=== PATIENT | female | born 1975 | race Caucasian/White ===

== ENCOUNTER → 2016-09-28 | Outpatient (CLI) | payer OTHER | LOC: FIMAGING 08:48 | PROVIDERS: ATTEND Obstetrics & Gynecology | DX: O09.512 Supervision of elderly primigravida, second trimester (principal); O09.812 Supervision of pregnancy resulting from assisted reproductive technology, second trimester; O44.02 Complete placenta previa NOS or without hemorrhage, second trimester; Z3A.20 20 weeks gestation of pregnancy ==

== ENCOUNTER → 2016-10-31 | Outpatient (CLI) | payer OTHER | LOC: FIMAGING 09:54 | PROVIDERS: ATTEND Obstetrics & Gynecology | DX: O44.02 Complete placenta previa NOS or without hemorrhage, second trimester (principal); O09.812 Supervision of pregnancy resulting from assisted reproductive technology, second trimester; O99.282 Endocrine, nutritional and metabolic diseases complicating pregnancy, second trimester; E03.9 Hypothyroidism, unspecified; O09.512 Supervision of elderly primigravida, second trimester; Z3A.24 24 weeks gestation of pregnancy ==

== ENCOUNTER → 2016-11-28 | Outpatient (CLI) | payer OTHER | LOC: FIMAGING 09:36 | PROVIDERS: ATTEND Obstetrics & Gynecology | DX: O09.513 Supervision of elderly primigravida, third trimester (principal); O09.813 Supervision of pregnancy resulting from assisted reproductive technology, third trimester; O44.03 Complete placenta previa NOS or without hemorrhage, third trimester; Z3A.28 28 weeks gestation of pregnancy ==

== ENCOUNTER → 2016-12-26 | Outpatient (CLI) | payer OTHER | LOC: FIMAGING 09:07 | PROVIDERS: ATTEND Obstetrics & Gynecology | DX: O09.513 Supervision of elderly primigravida, third trimester (principal); O09.813 Supervision of pregnancy resulting from assisted reproductive technology, third trimester; Z3A.32 32 weeks gestation of pregnancy ==

== ENCOUNTER 2017-01-05 05:11 | Inpatient (IN) | payer OTHER ==
[2017-01-05] MEDS ORDERED: NIFEdipine 10 MG CAP PO ONE (05:57)
[2017-01-05] MEDS ORDERED: LR 1,000 ML IV PRN (06:38)
[2017-01-05] MEDS ORDERED: EPSOM SALT 454 GM TP PRN (06:38)
[2017-01-05] MEDS ORDERED: LR 1,000 ML IV ONE (06:41)
[2017-01-05] MEDS ORDERED: LR 1,000 ML IV SCH (07:00)
--- NOTE | 2017-01-05 07:46 | GHP ---
[f rep st] HISTORY AND PHYSICAL DATE OF ADMISSION: 01/05/2017 CHIEF COMPLAINT: Contractions and vaginal bleeding. HISTORY OF PRESENT ILLNESS: The patient is a 41-year-old, 1, para 0, female at 34 weeks and 1 day estimated gestational age by IVF dating, who presents to Labor and Delivery with complaints of contractions starting at 3 a.m. in addition to associated menstrual-like cramping and vaginal bleeding that started in the elevator upon arrival to the hospital. Her is significant for a history of an anterior placenta previa that has now resolved with a recent ultrasound confirming multiple loops of cord below the head consistent with funic cord presentation, as well as a recent admission to [facility] 48 hours ago for a large volume bleed. During the patient's recent admission, she was given a course of magnesium for tocolysis, completed a course of steroids for lung maturity, and her bleeding had stopped and contractions resolved. The patient was sent home yesterday afternoon and she remained stable until this morning at 3 a.m. when she awoke with contractions every 2-3 minutes, as well as menstrual-like cramping. She did not have any further bleeding until she arrived to the hospital and had a small smear of bright red bleeding on her pad. She reports that the final diagnosis that she was given at [facility] was a suspected partial abruption behind the placenta, even though she says that nothing was obviously seen on imaging. Her is also complicated by a history of advanced maternal age with normal preimplantation genetic screening, subclinical hypothyroidism, history of LEEP, and cystic fibrosis carrier. Her blood type is A positive. PAST MEDICAL HISTORY: None. PAST SURGICAL HISTORY: LEEP and ACL knee surgery. ALLERGIES: No known drug allergies. MEDICATIONS: None. LABS: Blood type A positive, antibody screen negative, Pap ASCUS with negative HPV, varicella immune, rubella immune, RPR nonreactive, hepatitis B surface antigen negative, HIV negative, gonorrhea and chlamydia negative, 1- hour GTT normal. PHYSICAL EXAMINATION: VITAL SIGNS: Blood pressure 112/75, heart rate 118, temp 37.4 degrees Celsius. heart rate tracing 140s reactive and reassuring with accelerations and no decelerations and moderate variability present. Tocometer contractions noted every 1-2 minutes upon arrival to labor and delivery. GENERAL: No acute. No distress. Well-developed, well- nourished female. CARDIOVASCULAR: Regular rate and rhythm. LUNGS: Clear to auscultation bilaterally. ABDOMEN: Gravid and nontender. STERILE SPECULUM EXAM: A speculum was placed and clot was noted to be covering the cervix. The clot was gently removed with Mejia swabs and the cervix was visualized clearly. There was no active bright red bleeding noted. The speculum was then removed and a gentle cervical exam was performed digitally which confirmed that the cervix was 1-2 cm dilated, 90% effaced, and approximately -1 station. There was palpable umbilical cord above the cervical os with pulsations palpated. Limited bedside ultrasound prior to cervical exam: A limited bedside ultrasound did show a vertex presentation with 1 small loop of cord visualized on color flow to extend partially down below the head, but not completely visualized to be above the cervix on ultrasound. ASSESSMENT: Patient is a 41-year-old, 1, para 0, female at 34 weeks and 1 day estimated gestational age by IVF dating with contractions, vaginal bleeding, and funic cord presentation. PLAN: 1. Admit to labor and delivery. 2. status reassuring with reactive nonstress test and category 1 monitoring. Status post completed steroid course as of yesterday morning. We will continue with continuous monitoring. 3. contractions and bleeding: History of anterior placenta previa that has resolved. Suspected that this bleeding is consistent with a partial abruption. We will get an official ultrasound for further evaluation. We will get baseline labs to include a type and screen, CBC, PT, PTT, fibrinogen and Kleihauer Betke. Her blood type is A positive, so RhoGAM was not needed. Her cervical exam at this time appears likely stable from her prior exam; however, we will re-evaluate if needed, if the contractions continue. The patient was given 1 dose of nifedipine at 20 mg p.o. as initial tocolytics due to the frequent contractions and her status. She noted symptomatic improvement in her contractions after receiving nifedipine. We will continue to monitor closely. Discussed that we will need to proceed with a section if patient has any active hemorrhage that does not resolve, active labor with cervical change, or non-reassuring status. Will plan to keep the patient n.p.o. at this time with IV fluid hydration with a bolus of 500 cc, then maintenance fluid at 125 cc an hour. 4. PABLITO hose for VTE prophylaxis. Plan for bed rest and bathroom privileges at this time. /[id number]/MODL MTDD
[2017-01-05 08:34] LABS: INR 0.95 (0.83-1.16); PROTIME(PATIENT) 12.6 SEC (12.0-15.0)
[2017-01-05 08:35] LABS: APTT 23.3 SEC (23.0-38.0)
[2017-01-05 08:38] LABS: ABSOLUTE NRBC COUNT 0.02 10^3/uL (0-0.01); ADD DIFF? YES; ADD MORPH? NO; ADD SCAN? NO; ATYPICAL LYMPHOCYTE FLAG 0 (0-99); FRAGMENT RBC FLAG 0 (0-99); HEMATOCRIT 28.9 % (38.0-47.0); LEFT SHIFT FLG 10 (0-99); LIPEMIA HEMOLYSIS FLAG 90 (0-99); MEAN CELL HEMOGLOBIN 34.5 pg (27.9-34.1); MEAN CELL HEMOGLOBIN CONCENTR. 34.6 g/dL (32.4-36.7); MEAN CELL VOLUME 99.7 fL (81.5-99.8); MEAN PLATELET VOLUME 10.6 fL (8.7-11.7); NRBC-AUTO% 0.1 % (0.0-0.2); PLATELET CLUMPS FLAG 10 (0-99); PLATELET COUNT 174 10^3/uL (150-400); RED CELL DISTRIBUTION WIDTH 13.2 % (11.5-15.2)
[2017-01-05 09:04] LABS: PLATELET ESTIMATE ADEQUATE (ADEQ)
[2017-01-05 09:05] LABS: MACROCYTES 1+; POLYCHROMASIA 1+
[2017-01-05] MEDS: NIFEdipine 10 MG CAP PO SCH ×2 (12:19→18:29)
--- NOTE | 2017-01-05 12:53 | SOAPPROG ---
SOAP Progress Note Assessment/Plan: Assessment: 41 yo G1P 0@ 34 1/7, admitted for contractions and vaginal bleeding, s/ p bmz x 2. Plan: 01/05/17 12:50 Continue nifedipine 10 mg q 6 hr, monitor overnight, s/p bmz, anticipate d/c home this weekend if no further vaginal bleeding. Subjective: 41 yo G1P 0@ 34 1/7, admitted for contractions and vaginal bleeding, s/ p bmz x 2. Objective: Laboratory Results 01/05/17 08:00 PT 12.6 SEC (12.0-15.0) 01/05/17 08:00 INR 0.95 (0.83-1.16) 01/05/17 08:00 VSS Contractions irregular 140s, mod variability, +accels, no decels Physical Exam - Physical Exam General Appearance: no apparent distress (vaginal exam /-1) ICD10 Worksheet Patient Problems: Problems Problem Status Onset Status post primary low transverse section Acute Vaginal bleeding during , antepartum Acute
[2017-01-06] MEDS: NIFEdipine 10 MG CAP PO SCH ×5 (00:18→23:59)
[2017-01-06] MEDS ORDERED: CEPACOL LOZENGE PO ONE (01:00)
[2017-01-06 01:08] LABS: % IMMATURE GRANULYOCYTES 1.9 % (0.0-1.1); ABSOLUTE NRBC COUNT 0.08 10^3/uL (0-0.01); ADD DIFF? NO; ADD MORPH? NO; ADD SCAN? NO; ATYPICAL LYMPHOCYTE FLAG 0 (0-99); FRAGMENT RBC FLAG 0 (0-99); HEMATOCRIT 29.8 % (38.0-47.0); HEMOGLOBIN 10.4 g/dL (12.6-16.3); LEFT SHIFT FLG 10 (0-99); LIPEMIA HEMOLYSIS FLAG 90 (0-99); MEAN CELL HEMOGLOBIN 34.2 pg (27.9-34.1); MEAN CELL HEMOGLOBIN CONCENTR. 34.9 g/dL (32.4-36.7); MEAN PLATELET VOLUME 10.5 fL (8.7-11.7); NRBC-AUTO% 0.5 % (0.0-0.2); PLATELET CLUMPS FLAG 0 (0-99); PLATELET COUNT 173 10^3/uL (150-400); RED BLOOD CELL COUNT 3.04 10^6/uL (4.18-5.33)
[2017-01-06 01:20] LABS: ALANINE AMINOTRANSFERASE 38 IU/L (9-52); ALBUMIN 3.1 g/dL (3.5-5.0); ALKALINE PHOSPHATASE 133 IU/L (38-126); ANION GAP 9 mEq/L (8-16); ASPARTATE AMINOTRANSFERASE 33 IU/L (14-46); BILIRUBIN,TOTAL 0.5 mg/dL (0.1-1.4); CALCIUM 8.9 mg/dL (8.5-10.4); CARBON DIOXIDE 19 mEq/l (22-31); CHLORIDE 109 mEq/L (97-110); CREATININE 0.7 mg/dL (0.6-1.0); GLOMERULAR FILTRATION RATE > 60; GLUCOSE 82 mg/dL (70-100); POTASSIUM 4.2 mEq/L (3.5-5.2); SODIUM 137 mEq/L (134-144); TOTAL PROTEIN 5.8 g/dL (6.3-8.2)
[2017-01-06] MEDS: FERROUS SULFATE 325 MG TAB PO SCH (09:02)
--- NOTE | 2017-01-06 10:57 | SOAPPROG ---
SOAP Progress Note Assessment/Plan: Assessment: 41 yo G1P 0@ 34 2/7, admitted for contractions and vaginal bleeding, s/ p bmz x 2. Plan: Continue nifedipine 10 mg q 6 hr, monitor overnight, s/p bmz, anticipate d/c home early in the week if no further bleeding, cervical change or contractions. Continue to monitor dyspnea, think it is likely related to nifedipine. 01/06/17 10:55 Subjective: 41 yo G1P 0@ 34 2/7, admitted for contractions and vaginal bleeding, s/ p bmz x 2. Had some shortness of breath overnight. Objective: Laboratory Results 01/06/17 01:00 01/06/17 01:00 PT 12.6 SEC (12.0-15.0) 01/05/17 08:00 INR 0.95 (0.83-1.16) 01/05/17 08:00 118/63 80 18 37.0 95% NST 130s, mod variability, +accels. Physical Exam - Physical Exam General Appearance: no apparent distress Respiratory: lungs clear Cardiac/Chest: regular rate, rhythm Abdomen: non-tender Skin: warm/dry Extremities: non-tender Neuro/Psych: oriented x 3 ICD10 Worksheet Patient Problems: Problems Problem Status Onset Vaginal bleeding during , antepartum Acute
[2017-01-07] MEDS ORDERED: CEFAZOLIN 2 GM/DEXTROSE/100 ML BAG IV ONE (04:49)
[2017-01-07] MEDS ORDERED: MISOPROSTOL 200 MCG TAB ONE ×2 (04:51→06:14)
[2017-01-07] MEDS ORDERED: CITRIC ACID/SODIUM CITRATE 30 ML UDCUP ONE (04:52)
--- NOTE | 2017-01-07 04:57 | SOAPPROG ---
SOAP Progress Note Assessment/Plan: Assessment: 41 yo G1P 0@ 34 3/7, admitted for contractions and vaginal bleeding, s/ p bmz x 2, with rupture of membranes.. Plan: Proceed to OR for emergent delivery via section due to funic presentation. The risks of bleeding, blood transfusion, infection, damage to the bowel, bladder, uterus, ovaries, blood vessels, and nerves were discussed. 01/07/17 04:55 Subjective: 41 yo G1P 0@ 34 3/7, admitted for contractions and vaginal bleeding, s/ p bmz x 2, with rupture of membranes Objective: Laboratory Results 01/06/17 01:00 01/06/17 01:00 PT 12.6 SEC (12.0-15.0) 01/05/17 08:00 INR 0.95 (0.83-1.16) 01/05/17 08:00 vss NST 140s, mod variability, Physical Exam - Physical Exam Pelvic Exam: other (gross rupture of membranes) ICD10 Worksheet Patient Problems: Problems Problem Status Onset Vaginal bleeding during , antepartum Acute
[2017-01-07] MEDS ORDERED: fentaNYL 100 MCG/2 ML INJ ONE (04:59)
[2017-01-07] MEDS ORDERED: morphINE PF 5 MG/10 ML INJ ONE (04:59)
[2017-01-07] MEDS ORDERED: METHYLERGONOVINE MAL 0.2 MG/ML INJ ONE (05:28)
[2017-01-07] MEDS ORDERED: HEMABATE 250 MCG/1 ML AMP IM ONE ×3 (05:34→06:36)
[2017-01-07] MEDS ORDERED: PHENYLEPHRINE HCL 100 MCG/ML SYR ONE ×2 (05:35→06:13)
[2017-01-07] MEDS ORDERED: OXYTOCIN 100 UNITS/10 ML VIAL ONE (05:35)
[2017-01-07] MEDS ORDERED: ONDANSETRON 4 MG/2 ML VIAL IVP PRN ×2 (05:37)
[2017-01-07] MEDS ORDERED: MEPERIDINE 25 MG/ML SYR IVP PRN (05:37)
[2017-01-07] MEDS ORDERED: PHENYLEPHRINE HCL 100 MCG/ML SYR IVP PRN (05:37)
[2017-01-07] MEDS ORDERED: fentaNYL 100 MCG/2 ML INJ IVP PRN (05:37)
[2017-01-07] MEDS ORDERED: METOCLOPRAMIDE 10 MG/2 ML VIAL IVP PRN (05:37)
[2017-01-07] MEDS ORDERED: NALOXONE HCL 0.4 MG/ML INJ IVP PRN ×2 (05:37)
--- NOTE | 2017-01-07 05:37 | PREANESOB ---
Obstetric Pre-Anesthesia Info - General Info Proposed Procedure: C/S : 1 Para: 0 - Info Status: Premature, Sebastian Monitors: External FHR Pattern: Reassuring - Labor Status Indications for Current Section: Cord Prolapse Labor Epidural: No Anesthesia Allergies/Adverse Reactions: Allergy/AdvReac Type Severity Reaction Status Date / Time No Known Allergies Allergy Unverified 01/05/17 05:57 Visit Medications: Generic Name Dose Route Start Last Admin Trade Name Fredestiney PRN Reason Stop Dose Admin Ferrous Sulfate 325 mg 01/06/17 09:00 01/06/17 09:02 Ferrous Sulfate PO 07/05/17 08:59 325 mg DAILY HOLGER Administration Lactated Ringer's 1,000 mls @ 0 mls/hr 01/05/17 06:38 Lr IV 07/04/17 06:37 PRN PRN SEE PROTOCOL CONDITIONS Protocol Per Protocol Lactated Ringer's 1,000 mls @ 125 mls/hr 01/05/17 07:00 Lr IV 07/04/17 06:59 CONT HOLGER Magnesium Sulfate 454 gm 01/05/17 06:38 Epsom Salt TP 07/04/17 06:37 PRN PRN perineal discomfort Nifedipine 10 mg 01/05/17 12:00 01/06/17 23:59 Procardia PO 07/04/17 11:59 10 mg Q6 HOLGER Administration Discontinued Medications Generic Name Dose Route Start Last Admin Trade Name Ambrose PRN Reason Stop Dose Admin Cefazolin Sodium/Dextrose Confirm 01/07/17 04:49 Ancef 2 Gm (Premix) Administered 01/07/17 04:50 Dose 2 gm IV .STK-MED ONE Citric Acid/Sodium Citrate Confirm 01/07/17 04:52 Bicitra Administered 01/07/17 04:53 Dose 30 ml .ROUTE .STK-MED ONE Fentanyl Confirm 01/07/17 04:59 Sublimaze Administered 01/07/17 05:00 Dose 100 mcg .ROUTE .STK-MED ONE Lactated Ringer's 1,000 mls @ 500 mls/hr 01/05/17 06:41 01/06/17 12:21 Lr IV 01/05/17 08:40 Not Given EDNOW ONE Methylergonovine Maleate Confirm 01/07/17 05:28 Methergine Administered 01/07/17 05:29 Dose 0.2 mg .ROUTE .STK-MED ONE Misoprostol Confirm 01/07/17 04:51 Cytotec Administered 01/07/17 04:52 Dose 800 mcg .ROUTE .STK-MED ONE Morphine Sulfate Confirm 01/07/17 04:59 Morphine Pf 5 Mg/10 Ml Administered 01/07/17 05:00 Dose 5 mg .ROUTE .STK-MED ONE Nifedipine 20 mg 01/05/17 05:57 01/05/17 06:08 Procardia PO 01/05/17 05:58 20 mg ONCE ONE Administration Throat Lozenges 1 ea 01/06/17 01:00 01/06/17 01:00 Cepacol Lozenge PO 01/06/17 01:01 1 ea ONCE ONE Administration - Anesthesia History Response to Local Anesthetics: Normal Anesthesia & Operative History: No Prior Problems - Focused Exam Height/Weight (Nursing): Height 172.72 cm Weight 82.1 kg Labs: 01/06/17 01:00 01/06/17 01:00 Patient ABO/Rh A POSITIVE 01/05/17 08:00 Total Bilirubin 0.5 mg/dL (0.1-1.4) 01/06/17 01:00 AST 33 IU/L (14-46) 01/06/17 01:00 ALT 38 IU/L (9-52) 01/06/17 01:00
[2017-01-07] MEDS ORDERED: SIMETHICONE 80 MG TAB CHEW PO PRN (05:53)
--- NOTE | 2017-01-07 05:58 | OBDEL ---
Info Type: Primary GBS+: No Indications for Delivery: PPROM, Placenta Previa Vaginal Delivery - Labor and Delivery Onset of Contractions Date: 01/04/17 Onset of Contractions Time: 17:00 Onset of Contractions Type: Spontaneous Rupture of Membranes Date: 01/07/17 Rupture of Membranes Type: Spontaneous Amniotic Fluid Color: Clear Operative Report - Delivery Pre-op Diagnoses: PTL, PPROM, Placental previa Post-op Diagnoses: PTL, PPROM, Placental previa Nulliparous Prior to Delivery: Yes Presentation at Delivery: Vertex Procedure: Emergent, Low Transverse Surgeon: Claire Hyatt Kiln Furniture Caster: Amy Becerra Anesthesiologist: Aj Bush Towel Cabinet Repairer/MOBILE ELECTRONICS INSTALLER: Chayo Dickey L&Abdiel Analgesia/Anesthesia Type: Spinal Complications: Other (Specify) (PTL, PPROM, Placenta previa) IV Fluid (ml): 400 EBL: 1200 Data Sebastian Delivery Date: 01/07/17 Delivery Time: 05:26 JASPAL: 02/15/17 Gestational Age: 34 week(s) and 3 day(s) Sex of Infant: Male ICD10 Worksheet Patient Problems: Problems Problem Status Onset Status post primary low transverse section Acute Vaginal bleeding during , antepartum Acute - ICD10 Problem Qualifiers (1) Status post primary low transverse section
[2017-01-07] MEDS ORDERED: METHYLERGONOVINE MAL 0.2 MG/ML INJ IM ONE (06:05)
[2017-01-07] MEDS ORDERED: DIPHENOXYLATE/ATROPINE LOMOTIL 1 TAB PO PRN (06:05)
[2017-01-07] MEDS ORDERED: fentaNYL 2MCG/ML/BUP 0.1% RTU 100 ML BAG EP ONE (06:13)
--- NOTE | 2017-01-07 06:14 | POSTANESTH ---
Post Anesthetic Evaluation Cardiovascular Status: Normal, Stable Respiratory Status: Normal, Stable, Similar to Pre-op Cond. Level of Consciousness/Mental Status: Can Participate in Eval, Alert and Oriented Pain Control: Adequate, Prn Tx Ordered Nausea/Vomiting Control: Adequate, Prn Tx Ordered Complications Possibly Related to Anesthesia: None Noted
[2017-01-07] MEDS ORDERED: TRANEXAMIC ACID 1,000 MG in NS 100 ML IV ONE (06:34)
[2017-01-07 06:38] LABS: ABSOLUTE NRBC COUNT 0.18 10^3/uL (0-0.01); ADD DIFF? YES; ADD SCAN? NO; ATYPICAL LYMPHOCYTE FLAG 10 (0-99); FRAGMENT RBC FLAG 0 (0-99); HEMATOCRIT 25.7 % (38.0-47.0); HEMOGLOBIN 8.8 g/dL (12.6-16.3); LEFT SHIFT FLG 20 (0-99); LIPEMIA HEMOLYSIS FLAG 90 (0-99); MEAN CELL HEMOGLOBIN 34.1 pg (27.9-34.1); MEAN CELL HEMOGLOBIN CONCENTR. 34.2 g/dL (32.4-36.7); MEAN CELL VOLUME 99.6 fL (81.5-99.8); MEAN PLATELET VOLUME 10.4 fL (8.7-11.7); PLATELET CLUMPS FLAG 20 (0-99); PLATELET COUNT 191 10^3/uL (150-400); RED BLOOD CELL COUNT 2.58 10^6/uL (4.18-5.33); RED CELL DISTRIBUTION WIDTH 13.1 % (11.5-15.2)
[2017-01-07 06:39] LABS: NRBC-AUTO% 1.1 % (0.0-0.2)
[2017-01-07 06:40] LABS: ADD MORPH? NO
[2017-01-07] MEDS ORDERED: MISOPROSTOL 200 MCG TAB PR SCH (06:45)
[2017-01-07 07:04] LABS: MACROCYTES 1+; PLATELET ESTIMATE ADEQUATE (ADEQ); POLYCHROMASIA 2+
[2017-01-07] MEDS: NIFEdipine 10 MG CAP PO SCH (07:07)
[2017-01-07] MEDS ORDERED: OXYTOCIN/RINGERS LACTATE 20 UNIT/1,000 ML BAG IV ONE (07:18)
[2017-01-07 08:18] LABS: ABSOLUTE NRBC COUNT 0.24 10^3/uL (0-0.01); ADD DIFF? YES; ADD MORPH? NO; ADD SCAN? NO; ATYPICAL LYMPHOCYTE FLAG 0 (0-99); FRAGMENT RBC FLAG 0 (0-99); HEMATOCRIT 32.5 % (38.0-47.0); HEMOGLOBIN 10.7 g/dL (12.6-16.3); LEFT SHIFT FLG 20 (0-99); LIPEMIA HEMOLYSIS FLAG 80 (0-99); MEAN CELL HEMOGLOBIN 34.5 pg (27.9-34.1); MEAN CELL HEMOGLOBIN CONCENTR. 32.9 g/dL (32.4-36.7); MEAN CELL VOLUME 104.8 fL (81.5-99.8); MEAN PLATELET VOLUME 10.9 fL (8.7-11.7); NRBC-AUTO% 0.9 % (0.0-0.2); PLATELET CLUMPS FLAG 40 (0-99); PLATELET COUNT 238 10^3/uL (150-400); RED CELL DISTRIBUTION WIDTH 13.3 % (11.5-15.2)
--- NOTE | 2017-01-07 08:19 | GOP ---
[f rep st] OPERATIVE REPORT DATE OF OPERATION: 01/07/2017 SURGEON: Claire Yen MD ELECTRONIC GAMING DEVICE SUPERVISOR: Amy Becerra. ANESTHESIA: Spinal. PREOPERATIVE DIAGNOSIS: Intrauterine at 34-3/7 weeks' gestation, with labor, rupture of membranes, and funic cord presentation. POSTOPERATIVE DIAGNOSIS: Intrauterine at 34-3/7 weeks' gestation, with labor, rupture of membranes, and funic cord presentation. PROCEDURE PERFORMED: Primary low transverse section. FINDINGS: Viable male in vertex presentation, with a funic cord presentation and low-lying placenta that was adherent to the uterine wall, requiring banjo curette. SPECIMENS: None. ESTIMATED BLOOD LOSS: 1500 mL. INDICATIONS: Medina is a 41-year-old, G1, P0 female, who was admitted for contractions and vaginal bleeding, and evaluation for funic cord presentation, when she had spontaneous rupture of membranes. The patient was consented for an urgent section, to which the patient agreed. DESCRIPTION OF PROCEDURE: The patient was taken the operating room, where she was prepped and draped in normal sterile fashion in the dorsal supine position, with a leftward tilt. A surgical time-out was performed, verifying the patient' s name, date of , planned procedure, and site. The patient received 2 g of Ancef preoperatively. A Pfannenstiel skin incision was made with a scalpel and carried through to the underlying fascia. The fascia was incised in the midline and extended laterally. The superior aspect of the fascia was grasped with a Xochitl clamp. The rectus muscles dissected off bluntly and with the Bovie cautery. The inferior aspect of the fascia was grasped with a Xochitl clamp. The rectus muscles dissected off bluntly and with the Bovie cautery. The peritoneum was identified and entered in bluntly and divided. A bladder blade was placed. The vesicouterine peritoneum was incised with the Metzenbaum scissors, and a bladder flap was created digitally. The bladder blade was replaced. The uterus was incised and the uterine incision was extended laterally. Upon entry into the uterine incision, placenta was low-lying. The funic cord presentation was felt. The infant was delivered. The cord was clamped and cut. Cord blood was obtained. The was handed to the waiting nurse practitioner. The placenta was removed manually and with banjo curette secondary to adherent placenta. Secondary to the adherent placenta, the patient lost an increased amount of blood loss. Estimated blood loss was 1500. The uterus was exteriorized and cleared of all clots and debris. As noted, sharp banjo curette was performed. The uterine wall felt smooth after the banjo curette. The uterine incision was reapproximated with 0 Monocryl in a running, locked fashion in 2 layers. The uterus was returned to the abdomen. The gutters were cleared of all clots and debris. The uterine incision was reinspected and noted to be hemostatic. The subfascial spaces were inspected and noted be hemostatic. The fascia was reapproximated with 0 Vicryl in a running, locked fashion, and the subcutaneous tissue was irrigated and closed with 3-0 Vicryl. The skin was closed with 4-0 Monocryl. All counts were correct x2. COMPLICATIONS: None. OUTCOME: Stable to the recovery room. /[id number]/MODL MTDD
[2017-01-07 08:46] LABS: MACROCYTES 1+; PLATELET ESTIMATE ADEQUATE (ADEQ); POLYCHROMASIA 2+
[2017-01-07] MEDS: KETOROLAC 30 MG/1 ML SDV IVP PRN ×3 (09:17→23:31)
[2017-01-07] MEDS: FERROUS SULFATE 325 MG TAB PO SCH (10:12)
[2017-01-07] MEDS: HYDROCODONE/APAP 5/325 TAB PO PRN ×2 (14:12→22:17)
[2017-01-07] MEDS: DOCUSATE SODIUM 100 MG CAP PO PRN (22:17)
[2017-01-08] MEDS: KETOROLAC 30 MG/1 ML SDV IVP PRN (05:58)
[2017-01-08 06:45] LABS: % IMMATURE GRANULYOCYTES 1.1 % (0.0-1.1); ABSOLUTE IMMATURE GRANULOCYTES 0.12 10^3/uL (0.00-0.10); ADD DIFF? NO; ADD MORPH? YES; ADD SCAN? NO; ATYPICAL LYMPHOCYTE FLAG 0 (0-99); FRAGMENT RBC FLAG 0 (0-99); HEMATOCRIT 18.6 % (38.0-47.0); LEFT SHIFT FLG 0 (0-99); LIPEMIA HEMOLYSIS FLAG 90 (0-99); MEAN CELL HEMOGLOBIN 33.9 pg (27.9-34.1); MEAN CELL HEMOGLOBIN CONCENTR. 33.9 g/dL (32.4-36.7); MEAN PLATELET VOLUME 10.3 fL (8.7-11.7); PLATELET CLUMPS FLAG 0 (0-99); PLATELET COUNT 155 10^3/uL (150-400); RED BLOOD CELL COUNT 1.86 10^6/uL (4.18-5.33); RED CELL DISTRIBUTION WIDTH 13.6 % (11.5-15.2)
[2017-01-08 06:57] LABS: HEMOGLOBIN 6.3 g/dL (12.6-16.3)
[2017-01-08 07:18] LABS: PLATELET ESTIMATE ADEQUATE (ADEQ); POLYCHROMASIA 2+
[2017-01-08 07:19] LABS: MACROCYTES 1+
--- NOTE | 2017-01-08 08:11 | OBPP ---
Progress Note Assessment/Plan: Assessment: 41 y.o. s/p primary C/S for PROM and placental previa. POD #1. Severely anemic. Plan: care. D/C Kidd and abdominal bandage. Consult with Dr. RIVERA and will cross and match 2 units of RBCs. Encourage ambulation. 01/08/17 08:08 Subjective: Reports feeling well with minimal vaginal bleeding and discomfort. Incision CDI and healing well. Denies vertigo with ambulation. Eating and drinking well without nausea or vomiting. Able to void after kidd d/c. Appropriate mood with good support system. Objective: 01/08/17 06:30 01/06/17 01:00 Patient ABO/Rh A POSITIVE 01/05/17 08:00 Total Bilirubin 0.5 mg/dL (0.1-1.4) 01/06/17 01:00 AST 33 IU/L (14-46) 01/06/17 01:00 ALT 38 IU/L (9-52) 01/06/17 01:00 Temp Pulse Resp BP Pulse Ox 37.1 C 99 18 134/84 H 100 01/08/17 05:45 01/08/17 05:45 01/08/17 05:45 01/08/17 05:45 01/08/17 05:45 Uterine Position/Fundal Height: Umbilicus -1 Uterine Tone: Firm Physical Exam - Physical Exam General Appearance: WD/WN, alert, no apparent distress EENT: normal ENT inspection Neck: non-tender, full range of motion, normal inspection Respiratory: lungs clear, normal breath sounds Cardiac/Chest: regular rate, rhythm Abdomen: normal bowel sounds, non-tender, soft Extremities: non-tender, normal inspection Back: Normal inspection Skin: normal color, warm/dry Neuro/Psych: alert, normal mood/affect, oriented x 3
[2017-01-08] MEDS: DOCUSATE SODIUM 100 MG CAP PO PRN ×2 (12:37→21:58)
[2017-01-08] MEDS: FERROUS SULFATE 325 MG TAB PO SCH ×3 (12:38→21:58)
[2017-01-08] MEDS: IBUPROFEN 600 MG TAB PO PRN ×2 (12:39→18:03)
[2017-01-08] MEDS: HYDROCODONE/APAP 5/325 TAB PO PRN ×2 (17:23→21:57)
[2017-01-09] MEDS: IBUPROFEN 600 MG TAB PO PRN ×4 (01:24→20:44)
[2017-01-09] MEDS: HYDROCODONE/APAP 5/325 TAB PO PRN ×4 (04:37→18:52)
[2017-01-09 04:54] LABS: ABSOLUTE IMMATURE GRANULOCYTES 0.12 10^3/uL (0.00-0.10); ABSOLUTE NRBC COUNT 0.03 10^3/uL (0-0.01); ADD DIFF? NO; ADD MORPH? NO; ADD SCAN? NO; ATYPICAL LYMPHOCYTE FLAG 0 (0-99); FRAGMENT RBC FLAG 0 (0-99); HEMATOCRIT 27.3 % (38.0-47.0); HEMOGLOBIN 9.6 g/dL (12.6-16.3); LEFT SHIFT FLG 0 (0-99); LIPEMIA HEMOLYSIS FLAG 90 (0-99); MEAN CELL HEMOGLOBIN 32.8 pg (27.9-34.1); MEAN CELL HEMOGLOBIN CONCENTR. 35.2 g/dL (32.4-36.7); MEAN CELL VOLUME 93.2 fL (81.5-99.8); MEAN PLATELET VOLUME 9.9 fL (8.7-11.7); NRBC-AUTO% 0.2 % (0.0-0.2); PLATELET CLUMPS FLAG 0 (0-99); PLATELET COUNT 171 10^3/uL (150-400); RED BLOOD CELL COUNT 2.93 10^6/uL (4.18-5.33); RED CELL DISTRIBUTION WIDTH 17.2 % (11.5-15.2)
--- NOTE | 2017-01-09 08:08 | OBPP ---
Progress Note Assessment/Plan: Assessment: 41 y.o. s/p primary C/S for PROM and placental previa. POD #2. Anemia improved with 2 U PRBCs. Noted slight increase in BP readings. Plan: Routine care. consult. Will check PIH labs today due to increase in BP readings. Encourage ambulation. 01/08/17 08:08 01/09/17 08:05 Subjective: Reports feeling more awake and alert this morning. Reports good pain control and minimal vaginal bleeding. Incision CDI and healing well. and pumping with in NICU. Eating and drinking well without n/v. Ambulating without vertigo. Appropriate mood with good support system. Objective: 01/09/17 04:40 01/06/17 01:00 Patient ABO/Rh A POSITIVE 01/05/17 08:00 Total Bilirubin 0.5 mg/dL (0.1-1.4) 01/06/17 01:00 AST 33 IU/L (14-46) 01/06/17 01:00 ALT 38 IU/L (9-52) 01/06/17 01:00 Temp Pulse Resp BP Pulse Ox 36.3 C 95 18 130/86 H 98 01/08/17 19:38 01/08/17 19:38 01/08/17 05:45 01/08/17 19:38 01/08/17 19:38 Uterine Position/Fundal Height: Umbilicus -1 Uterine Tone: Firm Physical Exam - Physical Exam General Appearance: WD/WN, alert, no apparent distress EENT: normal ENT inspection Neck: non-tender, full range of motion, normal inspection Respiratory: lungs clear, normal breath sounds Cardiac/Chest: regular rate, rhythm Abdomen: non-tender, soft Extremities: normal range of motion, non-tender, pedal edema Back: Normal inspection Skin: normal color, warm/dry Neuro/Psych: alert, normal mood/affect, oriented x 3
[2017-01-09] MEDS: FERROUS SULFATE 325 MG TAB PO SCH ×2 (08:14→20:44)
[2017-01-09] MEDS: DOCUSATE SODIUM 100 MG CAP PO PRN ×2 (08:14→20:44)
[2017-01-09 11:34] LABS: ALANINE AMINOTRANSFERASE 31 IU/L (9-52); ALBUMIN 2.7 g/dL (3.5-5.0); ALKALINE PHOSPHATASE 98 IU/L (38-126); ANION GAP 8 mEq/L (8-16); ASPARTATE AMINOTRANSFERASE 34 IU/L (14-46); BILIRUBIN,TOTAL 0.5 mg/dL (0.1-1.4); BILIRUBIN-CONJUGATED 0.3 mg/dL (0.0-0.5); BILIRUBIN-UNCONJUGATED 0.2 mg/dL (0.0-1.1); CALCIUM 9.3 mg/dL (8.5-10.4); CARBON DIOXIDE 23 mEq/l (22-31); CHLORIDE 105 mEq/L (97-110); CREATININE 0.7 mg/dL (0.6-1.0); GLOMERULAR FILTRATION RATE > 60; GLUCOSE 88 mg/dL (70-100); POTASSIUM 4.9 mEq/L (3.5-5.2); SODIUM 136 mEq/L (134-144); TOTAL PROTEIN 5.3 g/dL (6.3-8.2); URIC ACID 5.7 mg/dL (2.5-6.8)
[2017-01-10] MEDS: HYDROCODONE/APAP 5/325 TAB PO PRN ×2 (00:04→05:01)
[2017-01-10] MEDS: IBUPROFEN 600 MG TAB PO PRN ×2 (02:17→08:18)
[2017-01-10] MEDS ORDERED: LEVOTHYROXINE 75 MCG TAB PO SCH (06:00)
--- NOTE | 2017-01-10 07:56 | OBGCSDC ---
General Delivery Information - General Info : 1 Para: 1 Delivery Physician/CNM: Claire Hyatt Bowling Ball Mold Assembler: Amy Becerra Admission Date: 01/03/17 Labs: Patient ABO/Rh A POSITIVE 01/05/17 08:00 Hct 27.3 % (38.0-47.0) L D 01/09/17 04:40 Vaginal - Diagnosis Labor: Spontaneous Presentation at Delivery: Vertex Rupture of Membranes Type: Spontaneous Amniotic Fluid Color: Clear - Operations/Procedures L&D Analgesia/Anesthesia Type: Spinal - Delivery Number of Prior Sections: 0 Indications for Current Section: Placenta Previa Type: Primary Surgical Procedures: Unscheduled, Emergent, Low Transverse L&D Analgesia/Anesthesia Type: Spinal Arbela Data Sebastian Delivery Date: 01/07/17 Delivery Time: 05:26 JASPAL: 02/15/17 Gestational Age: 34 week(s) and 6 day(s) Sex of : Male Weight (gm): 2606 kg Discharge Information - Discharge Information Discharge Medications: Iron, Ibuprofen, Oxycodone, Vitamins Condition: Good Instruction/Follow Up: Two Weeks, Four Weeks, Six Weeks Discharge Physician/CNM: Amy Becerra
[2017-01-10 08:14] VITALS: BP 131/84; PULSE 95; RESP 16; TEMP 97.3; O2SAT 99
[2017-01-10] MEDS: FERROUS SULFATE 325 MG TAB PO SCH (08:18)
[2017-01-10] MEDS: DOCUSATE SODIUM 100 MG CAP PO PRN (08:18)
== END 2017-01-10 12:50 | disposition home or self-care (01) | DRG 765 ==
LOC: FLD 05:11 → OBSVTOIN 06:38 → FLD 19:51 → FOB 01-07 10:22
PROVIDERS: ADMIT Obstetrics & Gynecology; ATTEND Obstetrics & Gynecology
PROC: 10D00Z1 Extraction of Products of Conception, Low, Open Approach (ICD-10-PCS; principal; 2017-01-07)
DX: O42.013 Preterm premature rupture of membranes, onset of labor within 24 hours of rupture, third trimester (principal); O44.43 Low lying placenta NOS or without hemorrhage, third trimester; Z37.0 Single live birth; Z3A.34 34 weeks gestation of pregnancy; O99.283 Endocrine, nutritional and metabolic diseases complicating pregnancy, third trimester; E03.9 Hypothyroidism, unspecified
CPT/HCPCS: J0690; J1885; J2210; J2274; J2370; J2405; J2590; J3010; P9016; P9021

== ENCOUNTER → 2018-10-14 | Outpatient (CLI) | payer OTHER | LOC: FIMAGING 08:43 | PROVIDERS: ATTEND Obstetrics & Gynecology | DX: O09.521 Supervision of elderly multigravida, first trimester (principal); O09.211 Supervision of pregnancy with history of pre-term labor, first trimester; O34.219 Maternal care for unspecified type scar from previous cesarean delivery; Z3A.13 13 weeks gestation of pregnancy ==

== ENCOUNTER → 2018-11-04 | Outpatient (CLI) | payer OTHER | LOC: FIMAGING 14:03 | PROVIDERS: ATTEND Obstetrics & Gynecology | DX: O09.522 Supervision of elderly multigravida, second trimester (principal); Z3A.16 16 weeks gestation of pregnancy ==

== ENCOUNTER → 2018-11-14 | Outpatient (CLI) | payer OTHER | LOC: FIMAGING 12:20 | PROVIDERS: ATTEND Obstetrics & Gynecology | DX: O09.522 Supervision of elderly multigravida, second trimester (principal); Z3A.18 18 weeks gestation of pregnancy; Z87.51 Personal history of pre-term labor ==

== ENCOUNTER → 2018-12-02 | Outpatient (CLI) | payer OTHER | LOC: FIMAGING 10:25 | PROVIDERS: ATTEND Obstetrics & Gynecology | DX: O09.522 Supervision of elderly multigravida, second trimester (principal); O36.62X0 Maternal care for excessive fetal growth, second trimester, not applicable or unspecified; Z3A.20 20 weeks gestation of pregnancy ==

== ENCOUNTER → 2018-12-17 | Outpatient (CLI) | payer OTHER | LOC: FIMAGING 14:19 ==

== ENCOUNTER → 2018-12-24 | Outpatient (CLI) | payer OTHER | LOC: FIMAGING 14:32 ==